=== PATIENT | female | born 1940 | race African-American/Black ===

== ENCOUNTER 2018-03-29 11:07 | Emergency (ER) | payer MEDICARE, BC ==
[~2018-03-29] VITALS: Ht 160 cm; Wt 63.5 kg
--- NOTE | 2018-03-29 11:44 | PHYS DOC ---
Past Medical History Past Medical History: High Cholesterol, Hypertension Past Surgical History: No Surgical History Additional Information: Nonsmoking Alcohol Use: None Drug Use: None Adult General Chief Complaint Chief Complaint: ABDOMINAL PAIN HPI HPI Patient is a 77 year old female who presents with complaining of intermittent episode of upper abdominal pain for 1 week as an aching pain without radiation. Patient complaining of bilateral upper abdominal pain that gradually getting worse. Patient states the pain is not related to eating but getting worse with movement. Patient complaining of nausea and anorexia without vomiting, diarrhea and constipation, urinary symptoms, fever and chills, chest pain and shortness of breath, history of the same pain. Patient rated her pain 5/10 and denies taking any pain medication. Review of Systems Review of Systems Constitutional: Denies fever or chills [] Eyes: Denies change in visual acuity, redness, or eye pain [] HENT: Denies nasal congestion or sore throat [] Respiratory: Denies cough or shortness of breath [] Cardiovascular: No additional information not addressed in HPI [] GI: Reports abdominal pain, nausea, denies denies vomiting, bloody stools or diarrhea [] : Denies dysuria or hematuria [] Musculoskeletal: Denies back pain or joint pain [] Integument: Denies rash or skin lesions [] Neurologic: Denies headache, focal weakness or sensory changes [] Endocrine: Denies polyuria or polydipsia [] All other systems were reviewed and found to be within normal limits, except as documented in this note. Current Medications Current Medications Current Medications Medications (Trade) Dose Ordered Sig/William Start Time Stop Time Status Last Admin Dose Admin Sodium Chloride 500 ml @ 500 mls/hr 1X ONCE 03/29/18 11:45 03/29/18 12:44 DC 03/29/18 12:06 500 MLS/HR Allergies Allergies Allergies Coded Allergies Type Severity Reaction Last Updated Verified Penicillins Adverse Reaction Mild 03/29/18 Yes Physical Exam Physical Exam Constitutional: Well developed, well nourished, mild distress, non-toxic appearance. [] HENT: Normocephalic, atraumatic,oropharynx dry, no oral exudates, nose normal. [ ] Eyes: PERRLA, EOMI, conjunctiva normal, no discharge. [] Neck: Normal range of motion, no tenderness, supple, no stridor. [] Cardiovascular:Heart rate regular rhythm, no murmur [] Lungs & Thorax: Bilateral breath sounds clear to auscultation [] Abdomen: Bowel sounds normal, soft, epigastric and right upper quadrant tenderness, , no masses, no pulsatile masses. [] Skin: Warm, dry, no erythema, no rash. [] Back: No tenderness, no CVA tenderness. [] Extremities: No tenderness, no cyanosis, no clubbing, ROM intact, no edema. [] Neurologic: Alert and oriented X 3, normal motor function, normal sensory function, no focal deficits noted. [] Psychologic: Affect normal, judgement normal, mood normal. [] Current Patient Data Vital Signs Vital Signs Date Time Temp Pulse Resp B/P (MAP) Pulse Ox O2 Delivery O2 Flow Rate FiO2 03/29/18 15:05 72 18 140/63 (88) 96 Room Air 03/29/18 11:20 97.8 97.8 Lab Values Laboratory Tests Test 03/29/18 11:35 03/29/18 12:52 White Blood Count 8.3 x10^3/uL (4.0-11.0) Red Blood Count 3.99 x10^6/uL (3.50-5.40) Hemoglobin 13.0 g/dL (12.0-15.5) Hematocrit 38.6 % (36.0-47.0) Mean Corpuscular Volume 97 fL (79-100) Mean Corpuscular Hemoglobin 33 pg (25-35) Mean Corpuscular Hemoglobin Concent 34 g/dL (31-37) Red Cell Distribution Width 12.5 % (11.5-14.5) Platelet Count 285 x10^3/uL (140-400) Neutrophils (%) (Auto) 65 % (31-73) Lymphocytes (%) (Auto) 22 % (24-48) L Monocytes (%) (Auto) 9 % (0-9) Eosinophils (%) (Auto) 2 % (0-3) Basophils (%) (Auto) 1 % (0-3) Neutrophils # (Auto) 5.4 x10^3uL (1.8-7.7) Lymphocytes # (Auto) 1.9 x10^3/uL (1.0-4.8) Monocytes # (Auto) 0.8 x10^3/uL (0.0-1.1) Eosinophils # (Auto) 0.2 x10^3/uL (0.0-0.7) Basophils # (Auto) 0.1 x10^3/uL (0.0-0.2) Sodium Level 140 mmol/L (136-145) Potassium Level 4.2 mmol/L (3.5-5.1) Chloride Level 102 mmol/L (98-107) Carbon Dioxide Level 26 mmol/L (21-32) Anion Gap 12 (6-14) Blood Urea Nitrogen 19 mg/dL (7-20) Creatinine 0.8 mg/dL (0.6-1.0) Estimated GFR (Cockcroft-Gault) 69.4 BUN/Creatinine Ratio 24 (6-20) H Glucose Level 111 mg/dL (70-99) H Calcium Level 9.7 mg/dL (8.5-10.1) Total Bilirubin 0.5 mg/dL (0.2-1.0) Aspartate Amino Transferase (AST) 20 U/L (15-37) Alanine Aminotransferase (ALT) 20 U/L (14-59) Alkaline Phosphatase 66 U/L (46-116) Troponin I Quantitative < 0.017 ng/mL (0.000-0.055) VT-Jpv-M-Type Natriuretic Peptide 104 pg/mL (0-449) Total Protein 8.4 g/dL (6.4-8.2) H Albumin 3.9 g/dL (3.4-5.0) Albumin/Globulin Ratio 0.9 (1.0-1.7) L Lipase 114 U/L (73-393) Urine Collection Type Unknown Urine Color Yellow Urine Clarity Clear Urine pH 7.0 Urine Specific [place] 1.020 Urine Protein Negative mg/dL (NEG-TRACE) Urine Glucose (UA) Negative mg/dL (NEG) Urine Ketones (Stick) Negative mg/dL (NEG) Urine Blood Moderate (NEG) Urine Nitrite Negative (NEG) Urine Bilirubin Negative (NEG) Urine Urobilinogen Dipstick 0.2 mg/dL (0.2 mg/dL) Urine Leukocyte Esterase Moderate (NEG) Urine RBC 3-5 /HPF (0-2) Urine WBC 11-20 /HPF (0-4) Urine Squamous Epithelial Cells Few /LPF Urine Bacteria Moderate /HPF (0-FEW) Urine Mucus Mod /LPF Laboratory Tests 03/29/18 11:35 Laboratory Tests 03/29/18 11:35 Microbiology 03/29/18 Urine Culture - Final, Complete 03/29/18 Urine Culture Result 1 (RAMY) - Final, Complete EKG EKG EKG interpreted by me and did not show acute ST and T-wave abnormalities. Radiology/Procedures Radiology/Procedures [facility] [address] [place] [address] IMAGING REPORT Signed PATIENT: IGNACIO CAMARENA ACCOUNT: [id number] : 1940 LOCATION: ER AGE: 77 SEX: F EXAM STATUS: REG ER ORD. PHYSICIAN: CINDY BONILLA MD REASON: upper abdominal pain PROCEDURE: ABDOMEN LTD Examination: Ultrasound right upper quadrant abdomen HISTORY: History of upper abdominal pain for 3 days COMPARISON: None available Findings: The right lobe of the liver measures 14.6 cm. There is mild increased echogenicity noted in the liver. No evidence of gallstones identified. The gallbladder wall thickness measures 1.7 mm. The common bile duct measures 3.5 mm in diameter. The right kidney measures 10.9 cm in length. There is a 2.6 cm cystic structure identified in the right kidney probably a cyst. There is mild increased attenuation noted in the right kidney. IMPRESSION: 1. A 2.6 cm cystic structure identified in the right kidney probably a cyst. Follow-up examination is recommended document stability. 2. Mild increased echogenicity noted in the right kidney could be due to medical renal disease. 3. Minimal hepatic steatosis. Electronically signed by: Elijah Treadwell MD (03/29/2018 2:02 PM) [facility] Course & Med Decision Making Course & Med Decision Making Pertinent Labs and Imaging studies reviewed. (See chart for details) Evaluation of patient in ER showed 77-year-old female patient with complaining of abdominal pain and nausea for 1 week. Patient had unremarkable labs including cardiac enzymes and gallbladder ultrasound or for UTI. Patient felt better with treatment in ER and instructed to follow-up with her primary care physician. Dragon Disclaimer Dragon Disclaimer This electronic medical record was generated, in whole or in part, using a voice recognition dictation system. Departure Departure Impression: Primary Impression: Urinary tract infection Additional Impression: Upper abdominal pain Disposition: 01 HOME, SELF-CARE (at 1444) Condition: STABLE Patient Instructions: Abdominal Pain, Urinary Tract Infection Additional Instructions: Drink plenty of liquids Follow-up with your primary care physician in 3-5 days Return to ER if not getting better Scripts Ranitidine Hcl (ZANTAC) 150 Mg Tablet 1 TAB PO BID for dyspepsia, #30 TAB 0 Refills Prov: CINDY BONILLA MD 03/29/18 Ciprofloxacin Hcl (CIPRO) 250 Mg Tablet 1 TAB PO BID for infection, #14 TAB Prov: CINDY BONILLA MD 03/29/18 Problem Qualifiers CINDY BONILLA MD Mar 29, 2018 11:44
[2018-03-29] MEDS ORDERED: IV NORMAL SALINE 500ML BAG 500 ML IV ONE (11:45)
[2018-03-29 11:46] LABS: BASO # 0.1 x10^3/uL (0.0-0.2); BASO % 1 % (0-3); EOS # 0.2 x10^3/uL (0.0-0.7); EOS % 2 % (0-3); HEMATOCRIT 38.6 % (36.0-47.0); LYMPH # 1.9 x10^3/uL (1.0-4.8); LYMPH % 22 % (24-48); MEAN CORPUSCULAR HEMOGLOBIN 33 pg (25-35); MEAN CORPUSCULAR HGB CONC 34 g/dL (31-37); MEAN CORPUSCULAR VOLUME 97 fL (79-100); MONO # 0.8 x10^3/uL (0.0-1.1); MONO % 9 % (0-9); NEUT # 5.4 x10^3uL (1.8-7.7); NEUT % 65 % (31-73); PLATELET COUNT 285 x10^3/uL (140-400); RED BLOOD COUNT 3.99 x10^6/uL (3.50-5.40); RED CELL DISTRIBUTION WIDTH 12.5 % (11.5-14.5); WHITE BLOOD COUNT 8.3 x10^3/uL (4.0-11.0)
--- NOTE | 2018-03-29 11:56 | EKG ---
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
[2018-03-29 12:00] LABS: CALCIUM 9.7 mg/dL (8.5-10.1); CREATININE 0.8 mg/dL (0.6-1.0); GFR 69.4; POTASSIUM 4.2 mmol/L (3.5-5.1)
[2018-03-29 12:06] LABS: ALBUMIN 3.9 g/dL (3.4-5.0); ALBUMIN/GLOBULIN RATIO 0.9 (1.0-1.7); TOTAL BILIRUBIN 0.5 mg/dL (0.2-1.0); TOTAL PROTEIN 8.4 g/dL (6.4-8.2)
[2018-03-29 13:13] LABS: BILIRUBIN,URINE NEGATIVE (NEG); CLARITY,URINE CLEAR; COLOR,URINE YELLOW; NITRITE,URINE NEGATIVE (NEG); PROTEIN,URINE NEGATIVE (NEG-TRACE); UROBILINOGEN,URINE 0.2 mg/dL (0.2 mg/dL)
[2018-03-29 13:23] LABS: BACTERIA,URINE MODERATE /HPF (0-FEW); SQUAMOUS EPITHELIAL CELL,UR FEW /LPF
--- NOTE | 2018-03-29 14:05 | RAD ---
Examination: Ultrasound right upper quadrant abdomen HISTORY: History of upper abdominal pain for 3 days COMPARISON: None available Findings: The right lobe of the liver measures 14.6 cm. There is mild increased echogenicity noted in the liver. No evidence of gallstones identified. The gallbladder wall thickness measures 1.7 mm. The common bile duct measures 3.5 mm in diameter. The right kidney measures 10.9 cm in length. There is a 2.6 cm cystic structure identified in the right kidney probably a cyst. There is mild increased attenuation noted in the right kidney. IMPRESSION: 1. A 2.6 cm cystic structure identified in the right kidney probably a cyst. Follow-up examination is recommended document stability. 2. Mild increased echogenicity noted in the right kidney could be due to medical renal disease. 3. Minimal hepatic steatosis. Electronically signed by: Elijah Treadwell MD (03/29/2018 2:02 PM) [facility]
[2018-03-29] MEDS ORDERED: CIPR250T30 PO (14:48)
[2018-03-29] MEDS ORDERED: RANI150T21 PO (14:48)
[2018-03-29 15:05] VITALS: BP 140/63
== END 2018-03-29 15:10 | disposition home or self-care (01) ==
LOC: ER 11:07
DX: N39.0 Urinary tract infection, site not specified (principal); E78.00 Pure hypercholesterolemia, unspecified; I10 Essential (primary) hypertension; Z88.0 Allergy status to penicillin
CPT/HCPCS: 36415; 76705; 80053; 81001; 83690; 83880; 84484; 85025; 93005; 99285; J7040; 87086

== ENCOUNTER 2020-12-02 07:57 | Emergency (ER) | payer BC, MEDICARE ==
[~2020-12-02] VITALS: Ht 165.1 cm; Wt 50.0 kg
[~2020-12-02 07:57] MED LIST: CIPR250T30 PO; RANI-376 PO
[2020-12-02] MEDS ORDERED: FAMOTIDINE 20 MG/2 ML VIAL IVP ONE (08:30)
[2020-12-02] MEDS ORDERED: fentaNYL PF VIAL 100 MCG/2 ML VIAL IVP ONE (08:30)
[2020-12-02] MEDS ORDERED: IV NORMAL SALINE 1000ML BAG 1,000 ML IV ONE (08:30)
[2020-12-02] MEDS ORDERED: ONDANSETRON PF 4 MG/2 ML VIAL. IVP ONE (08:30)
--- NOTE | 2020-12-02 08:46 | PHYS DOC ---
Past Medical History Past Medical History: High Cholesterol, Hypertension Past Surgical History: No Surgical History Smoking Status: Former Smoker Alcohol Use: None Drug Use: None General Adult EDM: Chief Complaint: GI PROBLEM HPI: HPI: Patient is a 80 year old female who presents with abdominal pain. The patient awoke this morning around 0500 feeling nauseated. Soon after the patient suddenly started experiencing significant abdominal pain. Currently the pain is located to epigastrum and is sharp, constant, and rated 10/10 in severity. Nothing seems to help the pain, and any activity or movement worsens the pain. The patient reports her last meal was a PB&J last night. Last bowel movement was this morning and was described as normal. Patient denies vomiting, diarrhea, or constipation at this time. Denies any recent illnesses or recent sick contacts. Denies known exposure to COVID-19. Review of Systems: Review of Systems: Constitutional: Denies fever or chills Eyes: Denies redness or eye pain HENT: Denies nasal congestion or sore throat Respiratory: Denies cough or shortness of breath Cardiovascular: Denies chest pain or palpitations GI: Reports epigastric abdominal pain and nausea; Denies vomiting : Denies dysuria or hematuria Musculoskeletal: Denies back pain or joint pain Integument: Denies rash or skin lesions Neurologic: Reports headache; Denies focal weakness or sensory changes Complete systems were reviewed and found to be within normal limits, except as documented in this note. Heart Score: C/O Chest Pain: N/A Allergies: Allergies: Allergies Coded Allergies Type Severity Reaction Last Updated Verified Penicillins Adverse Reaction Mild 03/29/18 Yes Physical Exam: PE: Constitutional: Elderly, well nourished, in minor distress, non-toxic appearance HENT: Normocephalic, atraumatic Eyes: Conjunctiva normal, no discharge Neck: Normal range of motion, supple Lungs & Thorax: No respiratory distress, equal chest rise and fall Abdomen: Soft with significant epigastric tenderness, no distention or guarding, bowel sounds active throughout Skin: Warm, dry, no erythema, no rash Back: No tenderness, no CVA tenderness Extremities: No tenderness, ROM intact, no edema Neurologic: Alert and oriented X 3, no focal deficits noted Psychologic: Affect normal, judgment normal Current Patient Data: Vital Signs: Vital Signs Date Time Temp Pulse Resp B/P (MAP) Pulse Ox O2 Delivery O2 Flow Rate FiO2 12/02/20 07:57 72 18 112/57 (88) 96 Room Air EKG: EK12/02/20 at 0803 EKG shows sinus rhythm, 73 BPM, QRS 124 ms, QT/QTc 414/460 ms, possible right bundle branch block Radiology/Procedures: Radiology/Procedures: PROCEDURE: CT ABD PELV W/ IV CONTRST ONLY CT ABDOMEN+PELVIS W History: Upper abdominal pain Comparison: None. Technique: Ultrasound abdomen 03/29/2018. Findings: Bibasilar dependent changes. Trace pericardial fluid. No pleural effusion. The liver, gallbladder, pancreas and adrenal glands are unremarkable. There are coarse calcifications of the spleen consistent with granulomatous disease. Bilateral renal cysts. Mild left renal cortical atrophy. No hydronephrosis. No nephrolithiasis. Stomach and small bowel are unremarkable. There is mild descending and moderate sigmoid diverticulosis without evidence for diverticulitis. Moderate atherosclerosis of the aorta and branches. No abdominal pelvic free fluid. There are few prominent gastrohepatic lymph nodes measuring 8 mm and 9 mm short axis (axial image 18). Postsurgical changes from hysterectomy. Decompressed bladder without focal abnormality. Soft tissues are unremarkable. Multilevel degenerative disc disease in the lumbar spine. No acute or suspicious osseous lesions. Impression: 1. No acute findings in the abdomen and pelvis. 2. Mild prominence of the couple gastrohepatic lymph nodes measuring up to 9 mm short axis. Recommend repeat CT in 3 months to evaluate for stability/resolution. 3. Colonic diverticulosis without evidence for diverticulitis. ------ Exposure: One or more of the following individualized dose reduction techniques were utilized for this examination: 1. Automated exposure control 2. Adjustment of the mA and/or kV according to patient size 3. Use of iterative reconstruction technique. Electronically signed by: Samuel Dahl MD (12/02/2020 9:46 AM) [facility] Course & Med Decision Making: Course & Med Decision Making Pertinent Labs and Imaging studies reviewed. (See chart for details) Patient arrived via EMS complaining of epigastric abdominal pain. Vitals and EKG were obtained, EKG showed shows sinus rhythm, 73 BPM, QRS 124 ms, QT/QTc 414/460 ms, possible right bundle branch block. Administered fentanyl 25 mcg, Zofran, and Pepcid which resolved the patients abdominal pain. CT Abd/pelvis w IV contrast was obtained and showed no acute findings in the abdomen and pelvis, mild prominence of the couple gastrohepatic lymph nodes measuring up to 9 mm short axis, and colonic diverticulosis without evidence for diverticulitis. Patient was advised to obtain follow up imaging for her enlarged gastrohepatic lymph nodes and was given copy of CT results to provide to her PCP upon follow- up. Labs also obtained and posted to chart. Patient reports interval improvement of symptoms. Patient stable for discharge with outpatient follow-up with PCP/GI. GI referral provided. Discussed findings and plan with patient and her son, who acknowledge understanding and agreement. Dragon Disclaimer: Dragon Disclaimer: This electronic medical record was generated, in whole or in part, using a voice recognition dictation system. Departure Departure Impression: Primary Impression: Epigastric abdominal pain Disposition: HOME / SELF CARE / HOMELESS Condition: STABLE Referrals: DEBRA ARCE MD (PCP) RICARDO QUEEN MD Patient Instructions: Abdominal Pain (Nonspecific), Gastritis, Adult, Qunv-so-Fkrh Scripts Famotidine (PEPCID) 20 Mg Tablet 20 MG PO BID for Gastritis, #30 TAB Prov: ARNALDO CROSS DO 12/02/20 ARNALDO CROSS DO Dec 02, 2020 08:46
[2020-12-02 08:47] LABS: BASO # 0.1 x10^3/uL (0.0-0.2); BASO % 1 % (0-3); EOS % 1 % (0-3); HEMATOCRIT 35.4 % (36.0-47.0); HEMOGLOBIN 11.9 g/dL (12.0-15.5); LYMPH # 0.7 x10^3/uL (1.0-4.8); LYMPH % 7 % (24-48); MEAN CORPUSCULAR HEMOGLOBIN 33 pg (25-35); MEAN CORPUSCULAR HGB CONC 34 g/dL (31-37); MEAN CORPUSCULAR VOLUME 97 fL (79-100); MONO # 0.9 x10^3/uL (0.0-1.1); MONO % 9 % (0-9); NEUT # 8.1 x10^3/uL (1.8-7.7); NEUT % 83 % (31-73); PLATELET COUNT 246 x10^3/uL (140-400); RED BLOOD COUNT 3.66 x10^6/uL (3.50-5.40); RED CELL DISTRIBUTION WIDTH 12.6 % (11.5-14.5); WHITE BLOOD COUNT 9.8 x10^3/uL (4.0-11.0)
[2020-12-02 09:04] LABS: CALCIUM 9.3 mg/dL (8.5-10.1); GFR 64.4; POTASSIUM 3.9 mmol/L (3.5-5.1)
[2020-12-02 09:08] LABS: ALBUMIN 3.7 g/dL (3.4-5.0); ALBUMIN/GLOBULIN RATIO 0.9 (1.0-1.7); TOTAL BILIRUBIN 0.7 mg/dL (0.2-1.0); TOTAL PROTEIN 7.8 g/dL (6.4-8.2)
[2020-12-02] MEDS ORDERED: IOHEXOL 300 MG/ML 100ML VIAL. IV ONE (09:15)
[2020-12-02] MEDS ORDERED: CONTRAST GIVEN. MC PRN (09:15)
[2020-12-02 09:28] LABS: CREATINE KINASE 71 U/L (26-192)
--- NOTE | 2020-12-02 09:49 | RAD ---
CT ABDOMEN+PELVIS W History: Upper abdominal pain Comparison: None. Technique: Ultrasound abdomen 03/29/2018. Findings: Bibasilar dependent changes. Trace pericardial fluid. No pleural effusion. The liver, gallbladder, pancreas and adrenal glands are unremarkable. There are coarse calcifications of the spleen consistent with granulomatous disease. Bilateral renal cysts. Mild left renal cortical atrophy. No hydronephrosis. No nephrolithiasis. Stomach and small bowel are unremarkable. There is mild descending and moderate sigmoid diverticulosi s without evidence for diverticulitis. Moderate atherosclerosis of the aorta and branches. No abdomin al pelvic free fluid. There are few prominent gastrohepatic lymph nodes measuring 8 mm and 9 mm short axis (axial image 18). Postsurgical changes from hysterectomy. Decompressed bladder without focal ab normality. Soft tissues are unremarkable. Multilevel degenerative disc disease in the lumbar spine. No acute or suspicious osseous lesions. Impression: 1. No acute findings in the abdomen and pelvis. 2. Mild prominence of the couple gastrohepatic lymph nodes measuring up to 9 mm short axis. Recommen d repeat CT in 3 months to evaluate for stability/resolution. 3. Colonic diverticulosis without evidence for diverticulitis. ------ Exposure: One or more of the following individualized dose reduction techniques were utilized for thi s examination: 1. Automated exposure control 2. Adjustment of the mA and/or kV according to patient size 3. Use of iterative reconstruction technique. Electronically signed by: Samuel Dahl MD (12/02/2020 9:46 AM) [facility]
[2020-12-02 11:13] LABS: BILIRUBIN,URINE NEGATIVE (NEG); CLARITY,URINE CLEAR; COLOR,URINE YELLOW; NITRITE,URINE NEGATIVE (NEG); PH,URINE 7.5 (<5.0-8.0); PROTEIN,URINE NEGATIVE (NEG-TRACE); UROBILINOGEN,URINE 0.2 mg/dL (0.2 mg/dL)
[2020-12-02 11:23] LABS: HYALINE CASTS, URINE FEW /HPF
[2020-12-02 11:24] LABS: BACTERIA,URINE MODERATE /HPF (0-FEW); RBC,URINE OCC /HPF (0-2)
[2020-12-02 13:00] VITALS: BP 123/78
[2020-12-02] MEDS ORDERED: FAMO-63 PO ×2 (13:08→13:31)
--- NOTE | 2020-12-02 20:28 | EKG ---
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
== END 2020-12-02 13:26 | disposition home or self-care (01) ==
LOC: ER 07:57
DX: R10.13 Epigastric pain (principal); R11.0 Nausea; E78.00 Pure hypercholesterolemia, unspecified; I10 Essential (primary) hypertension; Z88.0 Allergy status to penicillin
CPT/HCPCS: 36415; 74177; 80053; 81001; 82553; 83605; 83690; 83735; 84484; 85025; 87086; 93005; 96361; 96374; 96375; 99285; J2405; J3010; J3490; J7030; P9612; Q9967